=== PATIENT | male | born 1985 | race Caucasian/White ===

== ENCOUNTER 2024-07-02 17:48 | Emergency (ER) | payer SELFPAY ==
[2024-07-02 18:03] VITALS: BP 149/77; PULSE 74; TEMP 36.6; O2SAT 98; BMI 20.9
--- NOTE | 2024-07-02 18:12 | ED_ITS ---
HPI - Wound/Laceration General: Chief Complaint: Wound/Laceration Stated Complaint: injury to lft thumb Time Seen by Provider: 07/02/24 18:06 Source: patient History of Present Illness: Patient is a 39-year-old intoxicated gentleman who presents to the ER for evaluation of laceration to the left thumb. He was using a fillet knife this morning around 11 AM whenever he sustained a laceration to the left thumb the subcutaneous tissue. There appears to be some avulsion of the tissue. He is quite intoxicated and endorses drinking some alcohol today. The girlfriend who is at bedside states too much whenever asked how much she has drink. He did not want to come to the hospital initially but ultimately has presented for evaluation. He is up-to-date on his tetanus per the patient and girlfriend at bedside. He complains of pain to the left thumb and has no other acute complaints. Context: accidental Associated symptoms: Denies fever(s), nausea or vomiting Related Data Previous Rx's ?Medication ?Instructions ?Recorded cephalexin 500 mg capsule 500 mg PO Q8H 5 days #15 cap s 07/02/24 Allergies Allergy/AdvReac Type Severity Reaction Status Date / Time No Known Allergies Allergy Verified 07/02/24 18:10 Review of Systems Const: Denies: fever(s) Card: Denies: chest pain Resp: Denies: dyspnea GI: Denies: abdominal pain, nausea or vomiting Skin/Breast: Reports: other (Lacerations with a palmar aspect of the left thumb) Psych: Reports: irritability Physical Exam Narrative: EXAM NARRATIVE: Agitated and somewhat belligerent intoxicated 39-year-old HENMT: COMMON NORMALS: normocephalic and atraumatic HEAD & SCALP: normocephalic and atraumatic Eye: COMMON NORMALS: EOMs intact bilaterally Resp: COMMON NORMALS: normal respiratory effort, No retractions and No use of accessory muscles Cardio: COMMON NORMALS: regular rate RATE: regular rate Extremity: NARRATIVE EXTREMITY EXAM: laceration to the palmar aspect of the left thumb with some tissue avulsion. Bleeding controlled with pressure. OTHER: 4cm curved laceration to the palmar aspe ct of the left thumb into the subcutaneous tissue. NV intact. No vascular or ligamentous involvement. Psych: OTHER: intoxicated, Procedures Laceration Laceration 1: Site: upper extremity Side (If applicable): left Size (cm): 4 Description: flap and irregular Depth: simple, single layer Local Anesthetic: lidocaine 1% Amount of anesthesia used (mL): 6 Pre-repair: wound explored and irrigated extensively Skin layer closed with: nylon Size (cm): 3-0 Number of sutures: 3 Technique: simple, interrupted (2) and running (1) Course Vital Signs: Vital signs: Vital Signs Temperature 97.9 F 07/02/24 18:03 Pulse Rate 74 07/02/24 18:03 Blood Pressure 149/77 07/02/24 18:03 Pulse Oximetry 98 07/02/24 18:03 Oxygen Delivery Me thod Room Air 07/02/24 18:03 MDM - Wound/Laceration Medical Decision Making Patient is a 39-year-old intoxicated gentleman who presents to the ER somewhat belligerent and with report of laceration to the palmar aspect of the left thumb. He has approximately 4 cm laceration into the subcutaneous tissue on the pad of the left thumb. There is no fingernail involvement. He states he was filleting fish whenever this occurred around 11:30 AM this morning. Patient reports being up-to-date on his immunizations. He was quite apprehensive about receiving treatment but ultimately agreed to receiving treatment. He appears neurovascular intact. Local anesthetic was applied at bedside. Laceration extends into the subcutaneous tissue. No ligamentous or vascular involvement. 1 double throw running stitch was placed in the center of the wound for reapproximation and 2 separate simple interrupted stitches were placed at each end. His wound reapproximated well. No complications. I will go ahead and discharge him with a prescription for Keflex given its contamination and durati on of exposure. Return precautions were provided. He is recommended suture removal in 2 weeks. Differential Diagnosis Likely laceration No radiology studies performed this visit Discharge Plan Discharge Patient Disposition: Home Clinical Impression: Laceration Condition: Stable Prescriptions: New cephalexin 500 mg capsule 500 mg PO Q8H 5 Days Qty: 15 0RF Discharge Orders: Discharge ED (Routine); Ordered 07/02/24 Ordered By: Avery Dickinson Discharge Activity: Increase activity as tolerated Patient Instructions: Care For Your Stitches (DC), Opioid Safety, Pain Management Activity Restrictions/Additional Instructions: Keep your wound clean and dry. Have your stitches removed in 12 To 14 days. Return for any signs of infection such as increasing redness, swelling, fever, pain, or any other concerns. Print Language: Maltese Coding Level of Care Code ED Site Identification Specialist for Delores Arana
[2024-07-02] MEDS: lidocaine 1% 10 ML INJ INTRADERMA (18:35)
== END 2024-07-02 18:56 | disposition home or self-care (01) ==
PROVIDERS: Emergency Provider Student in an Organized Health Care Education/Training Program
DX: S61.012A Laceration without foreign body of left thumb without damage to nail, initial encounter (principal); W26.0XXA Contact with knife, initial encounter
CPT/HCPCS: 12002; 99283

== ENCOUNTER 2025-04-28 18:59 | Emergency (ER) | payer SELFPAY ==
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
[2025-04-28 19:07] VITALS: BP 126/84; PULSE 73; RESP 18; O2SAT 97; BMI 23.6
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
--- OUTSIDE RECORDS SUMMARY | 2025-04-28 19:15 | XMS_ITS | Encounter Summary ---
Author Organization [facility] Address [address] [place] [address] Care Team Providers Care Gas Systems Worker Name Role Phone Christie Ritter MD Primary Care Provider Encounter Details Date Type Department Care Team (Late st Contact Info) Description 02/14/2007 Outpatient Historical [facility] [address] 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 Findings: There are no comparisons. No fractures are appreciated. There is no evidence of dislocation or subluxation. There is a scleroticoval lesion in the proximal diaphysis of the left humerus that probably represents a boneisland. - Dictated By: Yesi Smith M.D. Electronically Signed By: Yesi Smith M.D. Date Signed: 02/15/07 Procedure Note 03/25/2009 Exam: Shoulder - LeftDate/Time of Exam: Feb 15, 2007 12:37:57 AMHistory: Please see order comments. Findings: There are no comparisons. No fractures are appreciated. There is no evidence of dislocation orsubluxation. There is a scleroticoval lesion in the proximal diaphysis of the left humerus thatprobably represents a boneisland. - Dictated By: Yesi Smith M.D. Electronically Signed By: Yesi Smith M.D. Date Signed: 02/15/07 Farooq Farias DO DIAGNOSTIC IMAGING [facility] Final Result documented in this encounter Visit Diagnoses Diagnosis Injury of face and neck- Primary documented in this encounter Care Teams Gas Systems Worker Relationship Specialty Start Date End Date Christie Ritter MD [address] [place] [address] PCP - General Neurology 12/08/13 05/04/18 documented as of this encounter
--- OUTSIDE RECORDS SUMMARY | 2025-04-28 19:15 | XMS_ITS | Data Portability ---
Author Organization [facility] Andrew Monterroso [facility] Address [facility] [address] Assessment No assessment recorded. Plan of Treatment Reminders Order Date Submit Date Provider Last Modified By Organization Details Last Modified Time Details Appointments None recorded. Lab None recorded. Referral None recorded. Procedures None recorded. Surgeries None recorded. Imaging None recorded. Medication Orders omeprazole 20 mg capsule,del ayed release 2023 [facility] [address] [place] [address], [id number], 4 13:44:35 lisinopril 10 mg tablet 2023 024 [facility] [address], [address] [place] [address], [id number], 4 13:42:53 Patient TargetsNo targets recorded. Patient InstructionsNo instructions recorded. Reason for Referral None Reported. Problems Name Problem SNOMED Code Status Onset Date Resolution Date Notes Provider Name and Address Organization Details Recorded Time Restless legs syndrome 35431668 Active 2010 Restless Leg Syndrome; 1 3:48PM by Mandi Farias LPN, Office Visit; Promoted; acuity set as *; Not Available [facility] 3 03:07:52 Seizure disorder 322160834 Active 2010 Seizure Disorder; 1 3:48PM by Mandi Farias LPN, Office Visit; Promoted; acuity set as *; Not Available [facility] 3 03:07:53 Problem Notes None recorded. Procedures Surgical History Date Name Laterality Status Provider Name and Address Organization Details Recorded Time [facility] 13:06:35 closed [facility] 13:06:47 graft of skin [facility] skin [facility] 13:07:01 Imaging Results None recorded. Procedure Notes None recorded. Medical Equipment None Reported. Allergies No known drug allergies Medications Name Sig Start Date Stop Date Status Note LastModified by Organization Details LastModified Time Keppra 500 mg tablet daily 09/29 completed Not Available Not Available Not Available tramadol 50 mg tablet TID/PRN 09/29 completed Not Available Not Available Not Available lisinopril 10 mg tablet Take 1 tablet by mouth once daily for 30 days active Not Available Not Available No t Available omeprazole 20 mg capsule,dee yed release Take 1 capsule every day by oral route for 30 days. 2023 active Not Available Not Available Not Avai lable Vitals Date Recorded Body height Body mass index (BMI) Body weight Oxygen saturation Heart rate Respiratory rate Body temperature Systolic And Diastolic Provider Name and Address Organization Details Last Updated DateTime 181.61 cm 20.7 kg/m2 55457.0 1 g 94 % 56 /min 17 /min 98 [degF] 166/92 mm[Hg] [facility] 13:12[facility]02 Social History Question Answer Notes LastModified by PLDT Details LastModified Time Tobacco Smoking Status Never Smoker [facility]/30/2023 13:06:25 What Was The Date Of Your Most Recent Tobacco Screening? 09/30/2023 Information not available 09/30/2023 Sex: Unknown Functional Status Question Answer Note LastModified by PLDT Details LastModified Time Do you use any illicit or recreational drugs? No Information not available 09/30/2023 What is your level of alcohol consumption? Moderate Information not available 09/30/2023 Mental Status None recorded. Family History Nothing Reported. Medical History Condition Response Coronary Artery Disease N Other N Gout N Kidney Stones N Blood Diseases N Hyperthyroidism N Breast Cancer N Blood Transfusion N Hypothyroidism N Depression N COPD N Lung Disease N Defects or Inherited Disease N Developmental or Behavioral Disorders N Breast Problem N Difficulty Swallowing N Anesthesia Complications N Anxiety Disorder N Meniere's disease N Muscle, Joint, or Bone Problems N Vision or Eye Problems N Arthritis N Polyps N Infertility N Cancer N Varicosities N Stroke N Endometriosis N Bladder or Kidney Problems N High Cholesterol N Liver Disease N Headaches N Fibromyalgia N Kidney Disease N Allergies/Hayfever N Heart Problems N Ear or Hearing Problems N Hospitalizations N Thyroid Problems N GI Problems N ADD/ADHD N Skin Problems N Eating Disorder N Anemia N Constipation N Mental Illness N Ovarian Cancer N Diabetes N Bedwetting N Seizures/Epilepsy N Tuberculosis N Eczema N Diverticulitis N Abuse/Domestic Violence N Asthma N Reflux/GERD N Hepatitis N Heart Disease N Pulmonary Embolism N Chronic Ear Infections N Pre-Eclampsia N Hypertension N Chicken Pox N Autism Spectrum Disorder (ASD) N Osteoporosis N Thrombophilias N Immunizations Vaccine Type Date Status Note Provider Nam e and Address Organization Details Recorded Time MMR 3 completed Aliza lowery [facility], [facility] 09/30/2023 13:03:21 MMR 9 completed [facility]/30[facility]2023 13:03:21 Tdap 4 completed Aliza lowery [facility], [facility] 09/30/2023 13:03:21 DTP 8 completed Aliza lowery [facility], [facility] 09/30/2023 13:03:21 DTP 8 completed Aliza lowery [facility] 09/30/2023 13:03:21 DTP 3 completed Aliza lowery [facility] 09/30/2023 13:03:21 DTP 0 completed Aliza De La Cruz null, [facility] 09/30/2023 13:03:21 DTP 8 completed Aliza De La Cruz null, [facility] 09/30/2023 13:03:21 Hep B, unspecified formulation 1 completed Aliza De La Cruz null, [facility] 09/30/2023 13:03:21 Hep B, unspecified formulation 0 completed Aliza lowery, [facility] 09/30/2023 13:03:21 OPV, trivalent 8 completed [facility] 13:03:21 OPV, trivalent 8 completed [facility] 09/30/2023 13:03:21 OPV, trivalent 3 completed Aliza De La Cruz [facility], [facility] 09/30/2023 13:03:21 OPV, trivalent 0 completed Aliza De La Cruz [facility] 09/30/2023 13:03:21 Td (adult), 2 Lf tetanus toxoid, preservative free, adsorbed 1 completed Aliza De La Cruz null, [facility] 09/30/2023 13:03:21 Hep B, adolescent or pediatric 0 completed Aliza De La Cruz [facility] 09/30/2023 13:03:21 Hep A, ped/adol, 3 dose 9 completed Aliza De La Cruz [facility], [facility] 09/30/2023 13:03:21 Hep A, ped/adol, 3 dose 8 completed Aliza lowery [facility], [facility] 09/30/2023 13:03:21 Hep A, ped/adol, 3 dose 8 completed Aliza lowery [facility], [facility] 09/30/2023 13:03:21 Past Encounters Encounter ID Performer Location Encounter Start Date Encounter Closed Date Diagnosis/Indication Diagnosis SNOMED-CT Code Diagnosis ICD10 Code Diagnosis IMO Codes Diagnosis Note [id number] NING MORGAN [facility] [address] [place] [address] 09/30/2023 12:58:35 09/30/2023 14:04:34 Essential hypertension 97189064 I10 Will start Lisinopril . F/u with PCP this week for further labs and work up Gastroesop hageal reflux disease 272031649 K21.9 Discussed use of omeprazole for his gastritis symptoms. Health Concerns Section Related Observation LastModified by Organization Detai ls LastModified Time None Recorded Concern Status LastModified by Organization Details LastModified Time None Recorded Advance Directives Directive None Recorded Payers Insurance Date Sequence Insurance Name Policy Number Policy Mon Covered Member ID Mon Member ID Guarantor Name 10/01/2023 1 [facility] Vu De Leon [id number] Vu De Leon Notes Date Note Type Note Provider Name and Address Organization Details Recorded Time 09/30/2023 text/html ROS as noted in the HPI Pt reports having signs of a seizure yesterday. States he almost went out. Said he was disoriented, confused and lost. States he began to panic and began to get tingly, short of breath. States he is having trouble eating after 3 to 4 bites (ongoing for 3 to 4 months). Also has sinus drainage. The nurse at his work said he had high blood pressure, runny 170s/90s. Denies headache, reports possible blurred vision. Pt has a history of seizures, no medications taken for them. States he used to take the medication and stopped due to kidney problems.hx of seizures and was on meds. has been off for several years. 1 seizure this last June and a small episode yesterday morning.2 1/2 months gets sick at his stomach when he eats.Has an appt to establish care with a PCP at the [facility] in this Thursday. ARMIN GOLDMAN, DEPUTY PROBATION OFFICER [address] [place], [address], [facility], Jazmin 09/30/2023 16:21:09
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
--- OUTSIDE RECORDS SUMMARY | 2025-04-28 19:15 | XMS_ITS | Encounter Summary ---
Author Organization [facility] Address [address] [place] [address] Care Team Providers Care Community Action Worker Name Role Phone Christie Ritter MD Primary Care Provider Encounter Details Date Type Department Care Team (Latest Contact Info) Description 12/10/2004 Outpatient Historical [facility] [address] [place] [address] Haroldo Ballesteros MD [address] [place] [phone] MED EXAM NEC-ADMIN PURP (Primary Dx) Social History Tobacco Use Types Packs/Day Years Used Date Smoking Tobacco: Never Assessed Sex and Gender Information Value Date Recorded Sex Assigned at Not on file 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
--- OUTSIDE RECORDS SUMMARY | 2025-04-28 19:15 | XMS_ITS | Encounter Summary ---
Author Organization [facility] Address [address] [place] [address] Care Team Providers Care Assistant Kitchen Manager Name Role Phone Christie Ritter MD Primary Care Provider Encounter Details Date Type Department Care Team (Latest Contact Info) Description 03/27/2004 Outpatient Historical [facility] [address] [place] [phone] Haroldo Ballesteros MD [address] [place] [phone] CELLULITIS NOS (Primary Dx) Social History Tobacco Use Types Packs/Day Years Used Date Smoking Tobacco: Never Assessed Sex and Gender Information Value Date Recorded Sex Assigned at Not on file 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
--- OUTSIDE RECORDS SUMMARY | 2025-04-28 19:15 | XMS_ITS | Encounter Summary ---
Author Organization [facility] Address [address] [place] [address] Care Team Providers Care Public Safety Dispatcher Name Role Phone Christie Ritter MD Primary Care Provider Encounter Details Date Type Department Care Team (Latest Contact Info) Description 01/21/2005 Outpatient Historical [facility] [address] [place] [phone] Haroldo Ballesteros MD [address] [place] [phone] INGROWING NAIL (Primary Dx) Social History Tobacco Use Types Packs/Day Years Used Date Smoking Tobacco: Never Assessed Sex and Gender Information Value Date Recorded Sex Assigned at Not on file Legal Sex Male 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
--- OUTSIDE RECORDS SUMMARY | 2025-04-28 19:15 | XMS_ITS | Clinical Summary ---
Author Organization [facility] Address [address] [place] [address] Care Team Providers Care Mathematical Sciences Professor Name Role Phone Unavailable Primary Care Provider Unavailabl e Social History Tobacco Use Types Packs/Day Years Used Date Smoking Tobacco: Never Assessed Sex and Gender Information Value Date Recorded Sex Assigned at Not on file Legal Sex Male 10:16 AM MORTGAGE MANAGER Gender Identity Not on file Sexual Orientation Not on file Last Filed Vital Signs Vital Sign Reading Time Taken Comments Blood Pressure 130/76 05/17/2024 9:25 AM MORTGAGE MANAGER Pulse - - Temperature - - Respiratory Rate - - Oxygen Saturation - - Inhaled Oxygen Concentration - - Weight 64.4 kg (142 lb) 05/17/2024 9:25 AM MORTGAGE MANAGER Height 180.3 cm (5' 11 ) 05/17/2024 9:25 AM MORTGAGE MANAGER Body Mass Index 19.8 05/17/2024 9:25 AM MORTGAGE MANAGER Plan of Treatment Health Maintenance Due Date Last Done Comments HIV Screening 1987 Hepatitis C Screening ages 1 8 to 79 once 1987 MMR VACCINES (1 of 1 - Standard series) 1988 YEARLY WELLNESS EXAM 1990 DEPRESSION SCREENING 1999 Varicella Vaccine (1 of 2 - 13+ 2-dose series) 2000 HPV VACCINES (1 - Male 3-dos e series) 2002 HEPATITIS B VACCINES (1 of 3 - 19+ 3-dose series) 2006 LIPID TESTING 2022 ADULT TETANUS 03/13/2024 03/13/2014, 07/22/2000 Influenza Vaccine 12/02/2024 COVID-19 Immunization ( - season) 2025 Zoster Vaccine (Recombinant Vaccine) (1 of 2) 2037 HEPATITIS A VACCINES Aged Out No long er eligible based on patient's age to complete this topic HIB VACCINES Aged Out No longer eligi ble based on patient's age to complete this topic IPV VACCINES Aged Out No longer eligi ble based on patient's age to complete this topic MENINGOCOCCAL VACCINE Aged Out No jeannine kiki eligible based on patient's age to complete this topic Meningococcal B Vaccine Aged Out No l onger eligible based on patient's age to complete this topic Pneumococcal Vaccine: Peds t o 50 & At-Risk Patients Aged Out No longer eligible based on patient's age to complete this topic ROTAVIRUS VACCINES Aged Out No longer eligible based on patient's age to complete this topic
--- OUTSIDE RECORDS SUMMARY | 2025-04-28 19:15 | XMS_ITS | Encounter Summary ---
Author Organization [facility] Address [address] [place] [address] Care Team Providers Care Recovery Assistant Name Role Phone Christie Ritter MD Primary Care Provider Encounter Details Date Type Department Care Team (Late st Contact Info) Description 02/14/2007 Emergency [facility] Emergency Department [address] [place] [phone] Farooq Farias DO [address] [place], [place] [phone] Open Wound of Shoulder Region, without Mention of Complication (Primary Dx) Social History Tobacco Use Types Packs/Day Years Used Date Smoking Tobacco: Never Assessed Sex and Gender Information Value Date Recorded Sex Assigned at Not on file 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
--- OUTSIDE RECORDS SUMMARY | 2025-04-28 19:15 | XMS_ITS | Encounter Summary ---
Author Organization [facility] Address [address] [place] [address] Care Team Providers Care Rate Manager Name Role Phone Christie Ritter MD Primary Care Provider Encounter Details Date Type Department Care Team (Latest Contact Info) Description 03/27/2004 Outpatient Historical [facility] [address] [place] [phone] Haroldo Ballesteros MD [address] [place] [phone] CELLULITIS NOS (Primary Dx) Social History Tobacco Use Types Packs/Day Years Used Date Smoking Tobacco: Never Assessed Sex and Gender Information Value Date Recorded Sex Assigned at Not on file 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
--- OUTSIDE RECORDS SUMMARY | 2025-04-28 19:15 | XMS_ITS | Encounter Summary ---
Author Organization [facility] Address [address] [place] [address] Care Team Providers Care Lift Truck Operator Name Role Phone Christie Ritter MD Primary Care Provider Encounter Details Date Type Department Care Team (Latest Contact Info) Description 12/11/2003 Outpatient Historical [facility] [address] [place] [phone] Haroldo Ballesteros MD [address] [place] [phone] Routine child health exam (Primary Dx) Social History Tobacco Use Types Packs/Day Years Used Date Smoking Tobacco: Never Assessed Sex and Gender Information Value Date Recorded Sex Assigned at Not on file Legal Sex Male 6:28 AM SUPERVISOR TUBING Gender Identity Not on file Sexual Orientation Not on file documented as of this encounter Plan of Treatment Not on file documented as of this encounter Visit Diagnoses Diagnosis Routine child health exam- Primary Routine infant or child health check documented in this encounter Care Teams Lift Truck Operator Relationship Specialty Start Date End Date Christie Ritter MD [address] [place] [phone] PCP - General Neurology 12/08/13 05/04/18 documented as of this encounter
--- OUTSIDE RECORDS SUMMARY | 2025-04-28 19:15 | XMS_ITS | Encounter Summary ---
Author Organization [facility] Address [address] [place] [address] Care Team Providers Care Fish Smoker Name Role Phone Christie Ritter MD Primary Care Provider Encounter Details Date Type Department Care Team (Latest Contact Info) Description 09/04/2004 Outpatient Historical [facility] [address] [place] [phone] Haroldo Ballesteros MD [address] [place] [phone] SPRAIN HIP & THIGH NOS (Primary Dx) Social History Tobacco Use Types Packs/Day Years Used Date Smoking Tobacco: Never Assessed Sex and Gender Information Value Date Recorded Sex Assigned at Not on file Legal Sex Male 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
--- OUTSIDE RECORDS SUMMARY | 2025-04-28 19:15 | XMS_ITS | Encounter Summary ---
Author Organization [facility] Address [address] [place] [address] Care Team Providers Care Site Safety Representative Name Role Phone Christie Ritter MD Primary Care Provider Reason for Visit * Reason Onset Date Comments Other 12/23/2013 Mother stated pt is running out of hyginet for chest, wanting to know if she should get a whole box or half, f/u appt is on Thursday. Was instructed may be most cost effective to purchase a half box in case they change the dressing order at appt. Also questioned using vaseline on face and lips, advised RN none of the skin was open, told mother to instruct pt to use a water based unscented lotion. Encounter Details Date Type Department Care Team (Late st Contact Info) Description 12/23/[address] [place] [address] Anthony Mancuso MD [address] [address] Other (Mother stated pt is running out of hyginet for chest, wanting to know if she should get a whole box or half, f/u appt is on Thursday. Was instructed may be most cost effective to purchase a half box in case they change the dressing order at appt. Also questioned using vaseline on face and lips, advised RN none of the skin was open, told mother to instruct pt to use a water based unscented lotion. 

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
[2025-04-28] MEDS: tetanus-dipt-pertussis 0.5 mL SDV IM (19:37)
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
[2025-04-28 20:10] LABS: Hematocrit 41.3 % (37-53); Hemoglobin 14.50 g/dL (11.27-16.99); Mean Corpuscular HGB Conc 35.1 g/dL (30-55); Mean Corpuscular Hemoglobin 31.7 pg (27-33); Mean Corpuscular Volume 90.2 fl (82-101); Nucleated Red Blood Cells % 0 %; Platelet Count 301 10^3/cmm (157-399); Red Blood Count 4.58 10^6/uL (3.85-5.65); White Blood Count 5.52 10^3/uL (3.29-11.43)
[2025-04-28 20:20] VITALS: BP 116/75; PULSE 101; O2SAT 91
[2025-04-28 20:25] LABS: Glucose Urine UA Negative (Normal); Nitrate Urine Negative (Negative); Specific Gravity, Urine 1.007 (1.005-1.030)
[2025-04-28 20:28] LABS: Add Urine Microscopic? YES
[2025-04-28 20:33] LABS: Alcohol Level 259 mg/dL (0-10); Anion Gap 18.7 (5-19); Blood Urea Nitrogen 8 mg/dL (6-20); Calcium 8.9 mg/dL (8.5-10.5); Carbon Dioxide 24 mmol/L (22-29); Chloride 105 mmol/L (98-107); Creatinine Clr Calc Pharmacy 146.0188; Glucose 108 mg/dL (65-115); Osmolality Calculated 297 mOsm/kg (285-295); Potassium 3.7 mmol/L (3.5-5.1); Sodium 144 mmol/L (136-145)
[2025-04-28 20:35] LABS: PCP Screen Urine Negative (Negative)
[2025-04-28 21:54] VITALS: BP 124/78; PULSE 74; O2SAT 96
[2025-04-28 22:55] VITALS: BP 108/88; PULSE 82; O2SAT 94
== END 2025-04-28 22:56 | disposition home or self-care (01) ==
PROVIDERS: Emergency Provider Family Medicine
DX: S63.502A Unspecified sprain of left wrist, initial encounter (principal); S02.2XXA Fracture of nasal bones, initial encounter for closed fracture; F10.129 Alcohol abuse with intoxication, unspecified; Y90.8 Blood alcohol level of 240 mg/100 ml or more; V89.2XXA Person injured in unspecified motor-vehicle accident, traffic, initial encounter
CPT/HCPCS: 70450; 70486; 71045; 72125; 73110; 73502; 80048; 80306; 80307; 81001; 85025; 90471; 90715; 99284; J9999